=== PATIENT | female | born 1965 | race American Indian/Alaskan Native ===

== ENCOUNTER 2017-10-03 13:32 | Outpatient (CLI) | payer MEDICARE ==
[2017-10-03 14:12] LABS: Basophils # (Auto) 0.1 K/mm3 (0.0-0.1); Basophils % (Auto) 0.7 % (0.0-1.8); Eosinophils # (Auto) 0.2 K/mm3 (0.0-0.4); Eosinophils % (Auto) 1.8 % (0.0-4.3); Hematocrit 21.6 % (30.3-42.9); Hemoglobin 6.9 gm/dl (10.1-14.3); Lymphocytes # (Auto) 1.9 K/mm3 (1.2-5.4); Lymphocytes % (Auto) 21.7 % (13.4-35.0); Mean Corpuscular HGB Conc 32 % (30-34); Mean Corpuscular Hemoglobin 26 pg (28-32); Mean Corpuscular Volume 82 fl (79-97); Monocytes # (Auto) 0.7 K/mm3 (0.0-0.8); Monocytes % (Auto) 8.4 % (0.0-7.3); Platelet Count 465 K/mm3 (140-440); Red Blood Count 2.65 M/mm3 (3.65-5.03); Red Cell Distribution Width 20.5 % (13.2-15.2)
[2017-10-03 14:29] LABS: % Iron Saturation 37.58 %; Alanine Aminotransferase 8 units/L (7-56); BUN/Creatinine Ratio 8; Blood Urea Nitrogen 73 mg/dL (7-17); Calcium 7.3 mg/dL (8.4-10.2); Hemolysis Index 0; Iron 59 ug/dL (37-170); Total Iron Binding Capacity 157 mcg/dL (250-450); Transferrin 133 mg/dl (192-382)
[2017-10-03 14:31] LABS: Bilirubin,Direct < 0.2 mg/dL (0-0.2)
[2017-10-03 15:00] LABS: Creatinine,Urine 63.7 mg/dL (0.1-20.0)
[2017-10-03 15:33] LABS: Protein/Creatinine Ratio,Urine 11.08
[2017-10-03 23:25] LABS: Bacteria,Urine 1+ /HPF (Negative)
[2017-10-03 23:26] LABS: Bilirubin,Urine NEG (Negative); Blood,Urine MOD (Negative); Color,Urine Yellow (Yellow); Urobilinogen,Urine < 2.0 mg/dL (<2.0)
[2017-10-03 23:29] LABS: Protein,Urine >500 mg/dL (Negative)
== END 2017-10-03 13:33 | disposition home or self-care (01) ==
LOC: LAB 13:32
PROVIDERS: ATTEND Internal Medicine Nephrology
DX: I12.0 Hypertensive chronic kidney disease with stage 5 chronic kidney disease or end stage renal disease (principal); N18.5 Chronic kidney disease, stage 5; D63.1 Anemia in chronic kidney disease; N25.81 Secondary hyperparathyroidism of renal origin
CPT/HCPCS: 36415; 80053; 81001; 82248; 82306; 82570; 83550; 83970; 84100; 84156; 85025; 86706

== ENCOUNTER 2017-11-01 08:13 | Day surgery (SDC) | payer MEDICARE ==
[~2017-11-01 08:13] MED LIST: ANCEF/NS 1 GM/50 ML 1 GM/50 ML BAG IV NR; HEPARIN 10,000 UNITS/10 ML IV ONE; HEPARIN 10,000 UNITS/10 ML ONE; MARCAINE 0.5% 30 ML INFILTRATI ONE; MARCAINE 0.5% INFILTRATI ONE; NACL 0.9% 1000 ML 1,000 ML IV SCH; NACL 0.9% 250ML 250 ML ONE; NACL 0.9% 500 ML IRRIGATION ONE; PAPAVERINE ONE; PROTAMINE SULFATE ONE; RIFADIN ONE; SODIUM BICARBONATE ONE; XYLOCAINE 1% 20 mL ONE; ceFAZolin 1 GM in NACL 0.9% 20 ML IV NR
[2017-11-01] MEDS ORDERED: DILAUDID IV PRN (08:43)
--- NOTE | 2017-11-01 08:45 | Anesthesia Day of Surgery ---
Anesthesia Day of Surgery - Day of Surgery Patient Examined: Yes Patient H&P Reviewed: Yes Patient is NPO: Yes Beta Blockers: No Cardiac Clearance: No Pulmonary Clearance: No
--- NOTE | 2017-11-01 08:45 | Anesthesia Consultation ---
Anesthesia Consult and Med Hx Date of service: 11/01/17 - Airway Anesthetic Teeth Evaluation: Good Mental/Hyoid Distance: Adequate Mallampati Class: Class II - Pulmonary Exam CTA: Yes - Cardiac Exam Cardiac Exam: RRR - Pre-Operative Health Status ASA Pre-Surgery Classification: ASA4 - Cardiovascular System Hx Hypertension: Yes Hx Coronary Artery Disease: Yes Hx Heart Murmur: Yes (Some doctors have said she has a murmur) Hx Peripheral Vascular Disease: Yes - Central Nervous System Hx Psychiatric Problems: No - Endocrine Hx Renal Disease: Yes Hx End Stage Renal Disease: Yes - Hematic Hx Anemia: Yes - Other Systems Hx Cancer: No
[2017-11-01] MEDS ORDERED: TRANSDERM-SCOP TD NR (09:00)
[2017-11-01] MEDS ORDERED: NACL 0.9% 1000 ML 1,000 ML IV SCH (09:00)
[2017-11-01 09:17] LABS: Calcium 9.3 mg/dL (8.4-10.2)
[2017-11-01] MEDS ORDERED: DIPRIVAN 10 MG/ML IV ONE (09:57)
[2017-11-01] MEDS ORDERED: XYLOCAINE MPF 2% ONE (09:58)
[2017-11-01] MEDS ORDERED: SUBLIMAZE ONE (09:58)
[2017-11-01] MEDS ORDERED: ANCEF/STERILE WATER 2 GM/20 ML IV NR (10:00)
[2017-11-01] MEDS ORDERED: ZOFRAN ONE (10:00)
[2017-11-01] MEDS ORDERED: DECADRON ONE (10:00)
--- NOTE | 2017-11-01 12:09 | Short Stay Summary ---
Short Stay Documentation Date of service: 11/01/17 Narrative H&P: See H&P - History H&P: obtained from office - Allergies and Medications Current Medications: Allergies No Known Allergies Allergy (Unverified 10/31/17 16:46) Home Medications Medication Instructions Recorded Confirmed Last Taken Type Furosemide [Lasix] 20 mg PO DAILY 10/31/17 11/01/17 10/30/17 23:45 History Insulin Detemir [Levemir Flextouch] 0 unit SQ QHS PRN 10/31/17 10/31/17 Unknown History amLODIPine [Norvasc] 10 mg PO DAILY 10/31/17 11/01/17 11/01/17 07:30 History cloNIDine [Catapres] 0.1 mg PO TID 10/31/17 11/01/17 11/01/17 07:30 History Active Medications Sodium Chloride (Nacl 0.9% 1000 Ml) 1,000 mls @ 42 mls/hr IV DIRECT YAMILET Last Admin: 11/01/17 09:00 Dose: 42 mls/hr Scopolamine (Transderm-Scop) 1 each TD PREOP NR Stop: 11/01/17 23:59 Last Admin: 11/01/17 09:00 Dose: 1 each - Brief post op/procedure progress note Date of procedure: 11/01/17 Pre-op diagnosis: End-Stage Renal Disease Post-op diagnosis: same Procedure: Creation of Left Brachiocephalic Arteriovenous Fistula Anesthesia: IGORA Surgeon: TOMEKA WHITE Estimated blood loss: minimal Pathology: none Condition: stable - Disposition Condition at discharge: Good Disposition: DC-01 TO HOME OR SELFCARE Short Stay Discharge Plan Activity: other (no heavy lifting with left arm) Wound: open to air, keep clean and dry, other (okay to wash the wound with soap and water but do not soak in water) Follow up with: TOMEKA WHIET MD [Staff Physician] - 14 Days Prescriptions: HYDROcodone/APAP 7.5-325 [[place] 7.5/325] 1 each PO Q6HR PRN #40 tablet PRN Reason: Pain
--- NOTE | 2017-11-01 12:10 | Operative Report ---
Operative Report Operative Report: Date of procedure: 11/01/2017 Pre-operative diagnosis: End-Stage Renal Disease Post-operative diagnosis: End-Stage Renal Disease Procedure(s): Creation of Left Brachial Artery to Cephalic Vein Arteriovenous Fistula Surgeon: Lennox Sharif MD Agricultural Engineering Technologist: None Anesthesia: Gen. Endotracheal Anesthesia EBL: Minimal Counts: Correct Complications: None Condition: Stable Findings: Successful creation of left brachiocephalic arteriovenous fistula with palpable thrill and palpable radial pulse at the completion of the case. Specimen: None Indications: The patient is a 52-year-old female with a history of end-stage renal disease currently on dialysis through a permacath. She is in need of long-term dialysis access and had vein that is suitable for creation of a fistula. She was given the risks, benefits, and alternative procedures and has consented to the procedure. Description of Procedure: The patient was brought to the operating room and laid in supine position after general endotracheal anesthesia was administered the patient was prepped and draped in normal sterile fashion. After anesthetizing the skin a transverse incision was created just below the antecubital crease. Dissection was carried down to the the cephalic vein using sharp dissection. The vein was dissected out both proximally and distally and suture ligated and divided distally. I then ran a 3 Nakia proximally in the vein, to ensure patency of the vein. Then flushed the vein with heparinized saline and flow was controlled with a bulldog clamp. I then dissected out the brachial artery through this incision circumferentially both proximal and distal and controlled the artery with vessel loops. I then placed the vessel loops on tension controlling the flow through the artery and created an arteriotomy using an 11 blade and Joe scissors. I created an end to side anastomosis between the cephalic vein and brachial artery using a 6-0 Prolene in running fashion. Prior to completing the anastomosis I flushed the artery both proximally and distally and then advanced a 3 Nakia proximally to break the spasm in the artery. I then completed the anastomosis and removed all vessel loops allowing flow into the fistula which had an excellent thrill. I achieved hemostasis with a combination of direct pressure and electrocautery. Once hemostasis was achieved I anesthetized the wound with Marcaine. I then closed the wound in 2 layers and 3-0 Vicryl in a running fashion to close the deep dermal layer and 4- 0 Monocryl in a running fashion in the subcuticular layer. I dressed the wound with Surgicel. The patient tolerated the procedure well, all sponge needle and instrument counts were correct. The patient was taken to recovery in stable condition.
[2017-11-01] MEDS: DILAUDID IV PRN ×2 (12:25→12:35)
[2017-11-01] MEDS ORDERED: DILAUDID ONE (12:26)
--- NOTE | 2017-11-01 12:30 | Post Anesthesia Evaluation ---
- Post Anesthesia Evaluation Patient Participated: Yes Airway Patent: Yes Stable Respiratory Function: Yes Nausea/Vomiting: No Temp > 96.8F: Yes Pain Manageable: Yes Adequeate Hydration: Yes Anesthesia Complications: No Block Receding Appropriately: Not Applicable Patient on Ventilator: No
[2017-11-01] MEDS ORDERED: NORCO 7.5/325 PO PRN (12:44)
[2017-11-01] MEDS ORDERED: ZOFRAN IV NR (13:57)
[2017-11-01 16:40] VITALS: BP 156/78
== END 2017-11-01 15:00 | disposition home or self-care (01) ==
LOC: OR 08:13
PROVIDERS: ATTEND Surgery Vascular Surgery
DX: I12.0 Hypertensive chronic kidney disease with stage 5 chronic kidney disease or end stage renal disease (principal); N18.6 End stage renal disease; I25.10 Atherosclerotic heart disease of native coronary artery without angina pectoris; I73.9 Peripheral vascular disease, unspecified; Z79.899 Other long term (current) drug therapy
CPT/HCPCS: 36415; 36821; 80048; 81025; 82962; C1757; J0690; J1100; J1170; J1644; J2405; J2704; J3010; J7030; J7040; J7050; J2440; J2720; J3490

== ENCOUNTER 2018-01-14 08:19 | Inpatient (IN) | payer MEDICARE ==
[~2018-01-14 08:19] MED LIST changes: -ANCEF/NS 1 GM/50 ML 1 GM/50 ML BAG IV NR; +ANCEF/STERILE WATER 2 GM/20 ML 2 GM/20 ML SYRINGE IV NR; -HEPARIN 10,000 UNITS/10 ML IV ONE; -HEPARIN 10,000 UNITS/10 ML ONE; -MARCAINE 0.5% 30 ML INFILTRATI ONE; -MARCAINE 0.5% INFILTRATI ONE; -NACL 0.9% 250ML 250 ML ONE; -NACL 0.9% 500 ML IRRIGATION ONE; -PAPAVERINE ONE; -PROTAMINE SULFATE ONE; -RIFADIN ONE; -SODIUM BICARBONATE ONE; -XYLOCAINE 1% 20 mL ONE; -ceFAZolin 1 GM in NACL 0.9% 20 ML IV NR
[2018-01-14] MEDS ORDERED: DIPRIVAN 10 MG/ML IV ONE (09:28)
[2018-01-14] MEDS ORDERED: XYLOCAINE MPF 2% ONE (09:29)
[2018-01-14 09:30] LABS: Calcium 7.4 mg/dL (8.4-10.2)
[2018-01-14 09:35] LABS: Hemoglobin 10.6 gm/dl (10.1-14.3); Mean Corpuscular HGB Conc 32 % (30-34); Mean Corpuscular Hemoglobin 27 pg (28-32); Mean Corpuscular Volume 84 fl (79-97); Platelet Count 393 K/mm3 (140-440); Red Blood Count 3.91 M/mm3 (3.65-5.03); Red Cell Distribution Width 17.2 % (13.2-15.2)
[2018-01-14 09:36] LABS: Basophils % (Auto) 0.5 % (0.0-1.8); Eosinophils # (Auto) 0.1 K/mm3 (0.0-0.4); Eosinophils % (Auto) 1.6 % (0.0-4.3); Lymphocytes # (Auto) 1.8 K/mm3 (1.2-5.4); Monocytes # (Auto) 0.6 K/mm3 (0.0-0.8); Monocytes % (Auto) 9.3 % (0.0-7.3)
--- NOTE | 2018-01-14 09:43 | Anesthesia Consultation ---
Anesthesia Consult and Med Hx Date of service: 01/14/18 - Airway Anesthetic Teeth Evaluation: Good ROM Head & Neck: Adequate Mental/Hyoid Distance: Adequate - Pre-Operative Health Status ASA Pre-Surgery Classification: ASA4 Proposed Anesthetic Plan: General - Cardiovascular System Hx Hypertension: Yes Hx Coronary Artery Disease: Yes Hx Heart Murmur: Yes (Some doctors have said she has a murmur) Hx Peripheral Vascular Disease: Yes - Central Nervous System Hx Psychiatric Problems: No - Gastrointestinal Hx Gastroesophageal Reflux Disease: Yes - Endocrine Hx Renal Disease: Yes Hx End Stage Renal Disease: Yes - Hematic Hx Anemia: Yes - Other Systems Hx Cancer: No - Additional Comments Anesthesia Medical History Comments: Hyperlipidemia. NAC. Severe PONV.
--- NOTE | 2018-01-14 09:44 | Anesthesia Day of Surgery ---
Anesthesia Day of Surgery - Day of Surgery Patient Examined: Yes Patient H&P Reviewed: Yes Patient is NPO: Yes Beta Blockers: Yes
[2018-01-14] MEDS ORDERED: PEPCID IV NR (10:00)
[2018-01-14] MEDS ORDERED: PHENERGAN PO NR (10:00)
[2018-01-14] MEDS ORDERED: TRANSDERM-SCOP TD NR (10:00)
[2018-01-14] MEDS ORDERED: DIPRIVAN 10 MG/ML 1,000 MG/100 ML BOTTLE IV ONE (10:02)
[2018-01-14] MEDS ORDERED: NACL ONE (10:06)
[2018-01-14] MEDS ORDERED: HEPARIN 10,000 UNITS/10 ML ONE (10:07)
[2018-01-14] MEDS ORDERED: MARCAINE 0.25% INFILTRATI ONE (10:07)
[2018-01-14] MEDS ORDERED: RIFADIN ONE (10:07)
[2018-01-14] MEDS ORDERED: NACL 0.9% 500 ML 500 ML ONE (10:07)
[2018-01-14] MEDS ORDERED: VERSED IV ONE ×2 (10:19→10:40)
[2018-01-14] MEDS ORDERED: DECADRON ONE (10:31)
[2018-01-14] MEDS ORDERED: DILAUDID ONE (10:40)
[2018-01-14] MEDS ORDERED: MARCAINE 0.5% INFILTRATI ONE (10:43)
[2018-01-14] MEDS ORDERED: NACL 0.9% IR ONE (10:43)
[2018-01-14] MEDS ORDERED: RIFADIN IV ONE (10:43)
[2018-01-14] MEDS ORDERED: HEPARIN 10,000 UNITS/10 ML IR ONE (10:43)
[2018-01-14] MEDS ORDERED: ZOFRAN ONE (11:24)
[2018-01-14] MEDS ORDERED: QUELICIN ONE (12:04)
[2018-01-14] MEDS ORDERED: ZOFRAN IV PRN (12:19)
--- NOTE | 2018-01-14 12:46 | Short Stay Summary ---
Short Stay Documentation Date of service: 01/14/18 Narrative H&P: See H&P - History H&P: obtained from office - Allergies and Medications Current Medications: Allergies No Known Allergies Allergy (Unverified 01/13/18 12:37) Home Medications Medication Instructions Recorded Confirmed Last Taken Type Furosemide [Lasix] 20 mg PO DAILY 10/31/17 01/14/18 01/13/18 09:00 History Insulin Detemir [Levemir Flextouch] 0 unit SQ QHS PRN 10/31/17 01/13/18 Unknown History amLODIPine [Norvasc] 10 mg PO DAILY 10/31/17 01/14/18 01/14/18 07:00 History cloNIDine [Catapres] 0.2 mg PO DAILY 10/31/17 01/14/18 01/13/18 21:00 History HYDROcodone/APAP 7.5-325 [[place] 1 each PO Q6HR PRN #40 tablet 11/01/17 01/13/18 Unknown Rx 7.5/325] Carvedilol [Coreg] 3.125 mg PO DAILY 01/14/18 01/14/18 01/14/18 07:00 History Active Medications Cefazolin Sodium (Ancef/Sterile Water 2 Gm/20 Ml) 2 gm in 20 mls @ 80 mls/hr IV PREOP NR; Protocol Stop: 01/14/18 23:59 Sodium Chloride (Nacl 0.9% 1000 Ml) 1,000 mls @ 42 mls/hr IV DIRECT YAMILET Last Admin: 01/14/18 09:35 Dose: 42 mls/hr Ondansetron HCl (Zofran) 4 mg IV ONCE PRN PRN Reason: Nausea And Vomiting - Brief post op/procedure progress note Date of procedure: 01/14/18 Pre-op diagnosis: End-Stage Renal Disease Post-op diagnosis: same Procedure: Creation of Left Brachial Artery to Axillary Vein AV Graft with 6 mm Bovine Graft Anesthesia: COREEN Surgeon: TOMEKA WHITE Estimated blood loss: minimal Pathology: none Specimen disposition: to lab Condition: stable - Disposition Condition at discharge: Good Disposition: DC-01 TO HOME OR SELFCARE Short Stay Discharge Plan Activity: other (no heavy lifting with left arm) Wound: open to air, keep clean and dry, other (okay to wash the wound with soap and water but do not soak in warm) Follow up with: TOMEKA WHITE MD [Staff Physician] - 14 Days Prescriptions: HYDROcodone/APAP 7.5-325 [[place] 7.5-325 mg TAB] 1 each PO Q6HR PRN #40 tablet PRN Reason: Pain
--- NOTE | 2018-01-14 12:48 | Operative Report ---
Operative Report Operative Report: Date of procedure: 01/14/2018 Pre-operative diagnosis: End-Stage Renal Disease Post-operative diagnosis: Same Procedure(s): 1. Creation of Left Brachial Artery to Axillary Vein AV Graft with 6 mm Bovine Graft Surgeon: Lennox Sharif MD Aerial Erector: None Anesthesia: General Endotracheal Anesthesia EBL: Minimal Counts: Correct Complications: None Condition: Stable Findings: Successful Creation of Left Arm AV Graft With Palpable Thrill at the Completion of the Case. Specimen: None Indication: The patient is a 52-year-old female with a history of end-stage renal disease currently on hemodialysis through a right internal jugular permacath. She is in need of long-term access and a previous creation of a brachiocephalic arteriovenous fistula that ran for several weeks but recently thrombosed. Her basilic vein is not adequate for creation of AV fistula so she requires creation of an AV graft. She was given the risks, benefits, and alternative procedures and has consented to procedure. Description of Procedure: The patient was brought to the operating room and laid in supine position after general endotracheal anesthesia was achieved the left arm was prepped and draped in normal sterile fashion. A longitudinal incision was made on the medial aspect of the arm just proximal to the antecubital crease and carried down to the brachial artery using sharp dissection. The brachial artery was dissected out circumferentially both proximally and distally and controlled with vessel loops. A second incision was created in longitudinal fashion on the medial aspect of the arm just distal to the axillary crease and carried down to the axillary vein using sharp dissection. Axillary vein was dissected out circumferentially and controlled with a vessel loop. I then used a Stephanie- Wick tunneler to tunnel from the brachial artery incision to the axillary vein incision and then put an 6 mm bovine through the tunnel. I infused with heparinized saline to ensure that it was not twisted or kinked. I put the brachial artery vessel loops on tension controlling the flow and then created an arteriotomy using an 11 blade and Joe scissors. I beveled the graft and created an end-to-side anastomosis using 6-0 Prolene running fashion. I clamped the graft just proximal to the anastomosis and then released the vessel loops restoring flow in the brachial artery. I placed quick clot in incision to achieve hemostasis. I cut the proximal end of the graft to the appropriate length and beveled the graft in preparation for a venous anastomosis. I controlled the axillary vein a Satinsky clamp and created a venotomy using an 11 blade and Joe scissors. I created an end to side anastomosis using a 6-0 Prolene in running fashion. Prior to completing the anastomosis I flushed the graft to ensure there was no thrombus and then completed the anastamosis. I released all clamps allowing flow into the AV graft which had an excellent thrill. I packed the wound with quick clot to achieve hemostasis. I anesthetized both wounds with Marcaine and then closed both wounds in 2 layers using 3-0 Vicryl in running fashion in the deep dermal layer and 4-0 Monocryl in running fashion the subcuticular layer. I dressed both wounds with Surgicel. The patient tolerated the procedure well all sponge needle and instrument counts were correct the patient was taken to recovery in stable condition.
[2018-01-14] MEDS ORDERED: ATROVENT IH ONE ×2 (13:59→15:16)
[2018-01-14] MEDS ORDERED: ROMAZICON IV PRN (14:37)
--- NOTE | 2018-01-14 15:23 | Post Anesthesia Evaluation ---
- Post Anesthesia Evaluation Patient Participated: Yes Airway Patent: Yes Stable Respiratory Function: No (resp. insuff. secondary to lethargy; RA sats high 80s; arousable) Nausea/Vomiting: No Temp > 96.8F: No Pain Manageable: Yes Adequeate Hydration: Yes Anesthesia Complications: No Patient on Ventilator: No Other Comments: Reccomended patient be admitted for observation secondary to resp. insuff and prolonged lethargy; Flumazenil x 2 doses given at 0.2mg/dose in PACU with appropriate response however re-sedation occured.
--- NOTE | 2018-01-14 16:06 | Event Note ---
Date: 01/14/18 Patient underwent creation of left arm arteriovenous graft. After the operation the patient has remained to sedated to maintain her oxygen saturations an requires admission to the hospital for observation. She will likely require dialysis prior to discharge tomorrow.
[2018-01-14] MEDS ORDERED: NARCAN 2 MG/2 ML ONE (19:00)
--- NOTE | 2018-01-14 22:21 | History and Physical Report ---
History of Present Illness Date of examination: 01/14/18 Date of admission: 01/14/18 15:36 Chief complaint: Chief complaint: Patient excessively sedated and low oxygen saturations History of present illness: History of present illness: 52-year-old black female with history of end-stage renal disease and insulin- dependent diabetes and hypertension underwent creation of left arm arteriovenous graft--Creation of Left Brachial Artery to Axillary Vein AV Graft with 6 mm Bovine Graft . After the operation the patient has remained sedated and unable to maintain her oxygen saturations which required admission to the hospital for observation. She will likely require dialysis prior to discharge tomorrow. No fever or chills. No wheezing. No recent travel. Past History Past Medical History: diabetes, ESRD, hypertension, hyperlipidemia Past Surgical History: Other (AV graft 2 on the left upper extremity right permacath infraclavicular-subclavian) Social history: lives with family, full code. denies: smoking, alcohol abuse Family history: hypertension Medications and Allergies Allergies Allergy/AdvReac Type Severity Reaction Status Date / Time No Known Allergies Allergy Unverified 01/13/18 12:37 Home Medications Medication Instructions Recorded Confirmed Last Taken Type Furosemide [Lasix] 20 mg PO DAILY 10/31/17 01/14/18 01/13/18 09:00 History Insulin Detemir [Levemir Flextouch] 0 unit SQ QHS PRN 10/31/17 01/13/18 Unknown History amLODIPine [Norvasc] 10 mg PO DAILY 10/31/17 01/14/18 01/14/18 07:00 History cloNIDine [Catapres] 0.2 mg PO DAILY 10/31/17 01/14/18 01/13/18 21:00 History Carvedilol [Coreg] 3.125 mg PO DAILY 01/14/18 01/14/18 01/14/18 07:00 History HYDROcodone/APAP 7.5-325 [[place] 1 each PO Q6HR PRN #40 tablet 01/14/18 Unknown Rx 7.5-325 mg TAB] Active Meds: Active Medications Flumazenil (Romazicon) 0.2 mg IV ONCE PRN PRN Reason: Sedation Last Admin: 01/14/18 14:30 Dose: 0.2 mg Fluticasone Propionate (Flonase) 200 mcg NS QDAY YAMILET Cefazolin Sodium (Ancef/Sterile Water 2 Gm/20 Ml) 2 gm in 20 mls @ 80 mls/hr IV PREOP NR; Protocol Stop: 01/14/18 23:59 Ondansetron HCl (Zofran) 4 mg IV ONCE PRN PRN Reason: Nausea And Vomiting Review of Systems All systems: negative Constitutional: no weight loss, no weight gain, no fever, no chills, no sweats, no night sweats Ears, nose, mouth and throat: no dysphagia, no hoarseness, no sore throat Breasts: deferred Cardiovascular: shortness of breath, no chest pain, no orthopnea, no palpitations, no rapid/irregular heart beat, no edema, no syncope, no lightheadedness Respiratory: wheezing, no cough, no cough with sputum, no excessive sputum, no hemoptysis, no shortness of breath, no dyspnea on exertion Gastrointestinal: no abdominal pain, no nausea, no vomiting, no diarrhea, no constipation Genitourinary Female: no dysuria, no urinary frequency, no urgency Rectal: no pain Musculoskeletal: no neck stiffness, no neck pain, no shooting arm pain, no arm numbness/tingling, no low back pain, no shooting leg pain, no leg numbness/ tingling, no redness of joints Integumentary: no rash, no pruritis, no redness, no sores, no wounds, no jaundice, no boils, no blisters Neurological: no seizures, no syncope Psychiatric: no anxiety, no memory loss, no change in sleep habits, no sleep disturbances Endocrine: no cold intolerance, no heat intolerance, no polyphagia, no excessive thirst Hematologic/Lymphatic: no easy bruising, no easy bleeding Allergic/Immunologic: no urticaria, no allergic rhinitis, no wheezing Exam - Constitutional Vitals: Temp Pulse Resp BP Pulse Ox 98.1 F 84 18 182/88 100 01/14/18 20:41 01/14/18 20:41 01/14/18 20:41 01/14/18 20:41 01/14/18 20:41 General appearance: Present: no acute distress, well-nourished - EENT Eyes: Present: PERRL ENT: hearing intact, clear oral mucosa - Neck Neck: Present: supple, normal ROM - Respiratory Respiratory effort: normal Respiratory: bilateral: CTA - Cardiovascular Heart rate: 76 Rhythm: regular Heart Sounds: Present: S1 & S2. Absent: rub, click - Extremities Extremities: no ischemia, pulses symmetrical, No edema Peripheral Pulses: within normal limits - Abdominal General gastrointestinal: Present: soft, non-tender, non-distended, normal bowel sounds Female genitourinary: Present: normal - Rectal Rectal Exam: deferred - Integumentary Integumentary: Present: clear, warm, dry - Musculoskeletal Musculoskeletal: gait normal, strength equal bilaterally - Psychiatric Psychiatric: appropriate mood/affect, intact judgment & insight - Neurologic Neurologic: CNII-XII intact, moves all extremities - Allied Health Allied health notes reviewed: nursing, case management Results - Labs CBC & Chem 7: 01/14/18 09:00 01/14/18 09:00 Labs: Laboratory Last Values WBC 5.9 K/mm3 (4.5-11.0) 01/14/18 09:00 RBC 3.91 M/mm3 (3.65-5.03) 01/14/18 09:00 Hgb 10.6 gm/dl (10.1-14.3) 01/14/18 09:00 Hct 33.0 % (30.3-42.9) 01/14/18 09:00 MCV 84 fl (79-97) 01/14/18 09:00 MCH 27 pg (28-32) L 01/14/18 09:00 MCHC 32 % (30-34) 01/14/18 09:00 RDW 17.2 % (13.2-15.2) H 01/14/18 09:00 Plt Count 393 K/mm3 (140-440) 01/14/18 09:00 Lymph % (Auto) 30.0 % (13.4-35.0) 01/14/18 09:00 [place] % (Auto) 9.3 % (0.0-7.3) H 01/14/18 09:00 Eos % (Auto) 1.6 % (0.0-4.3) 01/14/18 09:00 Baso % (Auto) 0.5 % (0.0-1.8) 01/14/18 09:00 Lymph # 1.8 K/mm3 (1.2-5.4) 01/14/18 09:00 [place] # 0.6 K/mm3 (0.0-0.8) 01/14/18 09:00 Eos # 0.1 K/mm3 (0.0-0.4) 01/14/18 09:00 Baso # 0.0 K/mm3 (0.0-0.1) 01/14/18 09:00 Add Manual Diff Complete 01/14/18 09:00 Seg Neutrophils % 58.6 % (40.0-70.0) 01/14/18 09:00 Seg Neutrophils # 3.5 K/mm3 (1.8-7.7) 01/14/18 09:00 Sodium 139 mmol/L (137-145) 01/14/18 09:00 Potassium 4.0 mmol/L (3.6-5.0) 01/14/18 09:00 Chloride 92.0 mmol/L (98-107) L 01/14/18 09:00 Carbon Dioxide 33 mmol/L (22-30) H 01/14/18 09:00 Anion Gap 18 mmol/L 01/14/18 09:00 BUN 37 mg/dL (7-17) H 01/14/18 09:00 Creatinine 5.5 mg/dL (0.7-1.2) H 01/14/18 09:00 Estimated GFR 10 ml/min 01/14/18 09:00 BUN/Creatinine Ratio 7 % 01/14/18 09:00 Glucose 103 mg/dL (65-100) H 01/14/18 09:00 POC Glucose 402 (70-105) H 01/14/18 22:03 Calcium 7.4 mg/dL (8.4-10.2) L 01/14/18 09:00 Assessment and Plan Advance Directives: Yes (full code) VTE prophylaxis?: Chemical Plan of care discussed with patient/family: Yes - Patient Problems (1) Acute respiratory failure Current Visit: Yes Status: Acute Qualifiers: Respiratory failure complication: hypoxia Qualified Code(s): J96.01 - Acute respiratory failure with hypoxia Plan to address problem: Secondary to anesthesia Admitted for observation [place] (2) Insulin dependent diabetes mellitus Current Visit: Yes Status: Chronic Plan to address problem: Continue home insulin and coverage Check hemoglobin A1c (3) Hypertension Current Visit: Yes Status: Chronic Qualifiers: Hypertension type: essential hypertension Qualified Code(s): I10 - Essential (primary) hypertension Plan to address problem: Continue antihypertensives (4) End stage renal disease Current Visit: Yes Status: Chronic Plan to address problem: nephrology consulted Hemodialysis tomorrow (5) DVT prophylaxis Current Visit: Yes Status: Acute Plan to address problem: Heparin 5000 units subcutaneous every 12 hours GI prophylaxis initiated
[2018-01-14] MEDS ORDERED: INSULIN DETEMIR 15 UNIT SQ PRN (22:31)
[2018-01-14] MEDS ORDERED: LANTUS SUB-Q PRN (22:41)
[2018-01-14] MEDS ORDERED: COREG PO SCH (23:00)
[2018-01-14] MEDS: CATAPRES PO SCH (23:30)
[2018-01-14] MEDS: HumaLOG SUB-Q SCH (23:31)
[2018-01-15] MEDS ORDERED: NORVASC PO SCH (10:00)
[2018-01-15] MEDS ORDERED: LASIX PO SCH (10:00)
[2018-01-15] MEDS: CATAPRES PO SCH (10:00)
[2018-01-15] MEDS ORDERED: COREG PO SCH (10:00)
--- NOTE | 2018-01-15 11:05 | Progress Note ---
Hospitalist Physical - Constitutional Vitals: Temp Pulse Resp BP Pulse Ox 98.3 F 71 20 124/61 100 01/15/18 05:36 01/15/18 05:36 01/15/18 05:36 01/15/18 05:36 01/15/18 05:36 General appearance: Present: no acute distress, well-nourished Results - Labs CBC & Chem 7: 01/14/18 09:00 01/14/18 09:00 Labs: Laboratory Last Values WBC 5.9 K/mm3 (4.5-11.0) 01/14/18 09:00 RBC 3.91 M/mm3 (3.65-5.03) 01/14/18 09:00 Hgb 10.6 gm/dl (10.1-14.3) 01/14/18 09:00 Hct 33.0 % (30.3-42.9) 01/14/18 09:00 MCV 84 fl (79-97) 01/14/18 09:00 MCH 27 pg (28-32) L 01/14/18 09:00 MCHC 32 % (30-34) 01/14/18 09:00 RDW 17.2 % (13.2-15.2) H 01/14/18 09:00 Plt Count 393 K/mm3 (140-440) 01/14/18 09:00 Lymph % (Auto) 30.0 % (13.4-35.0) 01/14/18 09:00 [place] % (Auto) 9.3 % (0.0-7.3) H 01/14/18 09:00 Eos % (Auto) 1.6 % (0.0-4.3) 01/14/18 09:00 Baso % (Auto) 0.5 % (0.0-1.8) 01/14/18 09:00 Lymph # 1.8 K/mm3 (1.2-5.4) 01/14/18 09:00 [place] # 0.6 K/mm3 (0.0-0.8) 01/14/18 09:00 Eos # 0.1 K/mm3 (0.0-0.4) 01/14/18 09:00 Baso # 0.0 K/mm3 (0.0-0.1) 01/14/18 09:00 Add Manual Diff Complete 01/14/18 09:00 Seg Neutrophils % 58.6 % (40.0-70.0) 01/14/18 09:00 Seg Neutrophils # 3.5 K/mm3 (1.8-7.7) 01/14/18 09:00 Sodium 139 mmol/L (137-145) 01/14/18 09:00 Potassium 4.0 mmol/L (3.6-5.0) 01/14/18 09:00 Chloride 92.0 mmol/L (98-107) L 01/14/18 09:00 Carbon Dioxide 33 mmol/L (22-30) H 01/14/18 09:00 Anion Gap 18 mmol/L 01/14/18 09:00 BUN 37 mg/dL (7-17) H 01/14/18 09:00 Creatinine 5.5 mg/dL (0.7-1.2) H 01/14/18 09:00 Estimated GFR 10 ml/min 01/14/18 09:00 BUN/Creatinine Ratio 7 % 01/14/18 09:00 Glucose 103 mg/dL (65-100) H 01/14/18 09:00 POC Glucose 181 (70-105) H 01/15/18 06:49 Hemoglobin A1c 7.4 % (4-6) H 01/15/18 05:55 Calcium 7.4 mg/dL (8.4-10.2) L 01/14/18 09:00
[2018-01-15] MEDS ORDERED: NACL 0.9% 100 ML IV PRN (11:07)
[2018-01-15] MEDS: HumaLOG SUB-Q SCH ×2 (11:30→17:01)
--- NOTE | 2018-01-15 12:37 | Progress Note ---
Subjective Date of service: 01/15/18 Interval history: Pt awake and alert without specific complaint at present other than mild to moderate incisional discomfort (tolerable). Objective - Constitutional Vitals: Vital Signs - 12hr 01/15/18 01/15/18 02:12 05:36 Temperature 98.3 F 98.3 F Pulse Rate 67 71 Respiratory 20 20 Rate Blood Pressure 144/63 124/61 O2 Sat by Pulse 100 100 Oximetry - Labs CBC & Chem 7: 01/14/18 09:00 01/14/18 09:00 Labs: Abnormal lab results 01/14/18 01/15/18 01/15/18 Range/Units 22:03 05:55 06:49 POC Glucose 402 H 181 H (70-105) Hemoglobin A1c 7.4 H (4-6) % 01/15/18 Range/Units 11:53 POC Glucose 190 H (70-105) Hemoglobin A1c (4-6) %
--- NOTE | 2018-01-15 16:00 | Consultation ---
History of Present Illness - Reason for Consult Consult date: 01/15/18 end stage renal disease - History of Present Illness This is a 52year old female who came to the hospital yesterday for outpatient procedure to have left AVF placed, however patient remained sedated and oxygen levels were not being maintained within the normal parameters and so patient was admitted for overnight stay/observation. Patient has history of Hypertension , Diabetes Mellitus and ESRD on HD at [facility]. We are being consulted form management of this patient's ESRD. Past History Past Medical History: diabetes, ESRD, hypertension, hyperlipidemia Past Surgical History: Other (AV graft 2 on the left upper extremity right permacath infraclavicular-subclavian) Social history: lives with family, full code. denies: smoking, alcohol abuse Family history: hypertension Medications and Allergies Allergies Allergy/AdvReac Type Severity Reaction Status Date / Time No Known Allergies Allergy Unverified 01/13/18 12:37 Home Medications Medication Instructions Recorded Confirmed Last Taken Type Furosemide [Lasix] 80 mg PO DAILY 10/31/17 01/15/18 01/13/18 09:00 History Insulin Detemir [Levemir Flextouch] 0 unit SQ QHS PRN 10/31/17 01/13/18 Unknown History amLODIPine [Norvasc] 10 mg PO DAILY 10/31/17 01/14/18 01/14/18 07:00 History cloNIDine [Catapres] 0.2 mg PO QHS 10/31/17 01/15/18 01/13/18 21:00 History Carvedilol [Coreg] 3.125 mg PO BID 01/14/18 01/15/18 01/14/18 07:00 History HYDROcodone/APAP 7.5-325 [[place] 1 each PO Q6HR PRN #40 tablet 01/14/18 Unknown Rx 7.5-325 mg TAB] Active Meds: Active Medications Amlodipine Besylate (Norvasc) 10 mg PO DAILY [facility] Carvedilol (Coreg) 3.125 mg PO QHS [facility] Last Admin: 01/14/18 23:30 Dose: 3.125 mg Clonidine HCl (Catapres) 0.2 mg PO Q12HR [facility] Last Admin: 01/14/18 23:30 Dose: 0.2 mg Furosemide (Lasix) 20 mg PO DAILY [facility] Sodium Chloride (Nacl 0.9%) 100 mls @ 999 mls/hr IV RASHAD PRN PRN Reason: Hypotension Insulin Glargine (Lantus) 15 units SUB-Q QHS PRN PRN Reason: Hyperglycemia Last Admin: 01/14/18 23:57 Dose: 15 units Insulin Human Lispro (Humalog) 0 unit SUB-Q [facility]; Protocol Last Admin: 01/14/18 23:31 Dose: 8 unit Review of Systems Constitutional: fatigue, no weight loss, no weight gain, no fever, no chills, no sweats Ears, nose, mouth and throat: no ear discharge, no tinnitis, no decreased hearing, no nose pain, no nasal congestion, no nasal discharge Breasts: deferred Cardiovascular: no chest pain, no orthopnea, no palpitations, no rapid/ irregular heart beat, no edema, no syncope Respiratory: no cough with sputum, no excessive sputum, no hemoptysis, no shortness of breath, no dyspnea on exertion Gastrointestinal: no abdominal pain, no nausea, no vomiting, no diarrhea, no constipation, no change in bowel habits, no hematemesis Musculoskeletal: no neck stiffness, no neck pain, no shooting arm pain, no arm numbness/tingling, no low back pain, no shooting leg pain, no leg numbness/ tingling, no redness of joints, no hot joints Integumentary: no rash, no pruritis, no redness, no sores, no wounds, no jaundice Neurological: no head injury, no transient paralysis, no paralysis, no weakness , no parathesias, no numbness, no tingling, no seizures Psychiatric: no anxiety, no memory loss, no change in sleep habits, no sleep disturbances, no insomnia, no hypersomnia, no change in appetite Endocrine: no cold intolerance, no heat intolerance, no polyphagia, no excessive thirst, no polydipsia, no polyuria, no nocturia Hematologic/Lymphatic: no easy bruising, no easy bleeding, no lymphadenopathy, no lymphedema Exam - Vital Signs Vital signs: Vital Signs Temp Pulse Resp BP Pulse Ox 98.2 F 83 18 167/96 99 01/14/18 09:45 01/14/18 09:45 01/14/18 09:45 01/14/18 09:45 01/14/18 09:45 - General Appearance General appearance: well-developed, appears stated age EENT: ATNC, PERRL, mucous membranes moist, hearing intact, vision intact Neck: Present: neck supple, trachea midline Respiratory: Clear to Ascultation Heart: regular, S1S2 Gastrointestinal: Present: normoactive bowel sounds Integumentary: warm and dry Neurologic: alert and oriented x3 Musculoskeletal: Absent: deformities, joint swelling Psychiatric: mood/affect appropriate Results - Lab Results 01/14/18 09:00 01/14/18 09:00 Most recent lab results Calcium 7.4 mg/dL (8.4-10.2) L 01/14/18 09:00 Assessment and Plan End Stage Renal Disease: -Hemodialysis today for UF and clearance -Fluid restriction of 1 liter per day -Renal diet -Obtain daily weights -Monitor I/O's -Assess dialysis needs daily -OK to discharge after HD today from renal standpoint Dialysis Access: -S/P creation of LUE AVG on 01/14/18 -Perm-catheter functional and used for HD Hypertension: -Amlodipine/Coreg/Clonidine -Adjust regimen as needed Diabetes Mellitus: -On Insulin -As per primary team
[2018-01-15 17:47] VITALS: BP 123/67
--- NOTE | 2018-01-15 18:05 | Discharge Summary ---
Providers - Providers Date of Admission: 01/14/18 15:36 Date of discharge: 01/15/18 Attending physician: JERRY TRAORE 01/14/18 15:35 Consult to Physician [CONS] Routine Comment: Consulting Provider: MOSHE ARMENDARIZ Physician Instructions: Reason For Exam: Observation 01/14/18 16:02 Consult to Physician [CONS] Routine Comment: Consulting Provider: DONA VIZCARRA Physician Instructions: Reason For Exam: Dialysis 01/14/18 22:34 Consult to Physician [CONS] Routine Comment: Consulting Provider: TOMEKA WHITE Physician Instructions: Reason For Exam: AVG graft Primary care physician: OPAL AVALOS Hospitalization Condition: Good Disposition: DC-30 STILL A PATIENT Time spent for discharge: 32 min Core Measure Documentation - Palliative Care Palliative Care/ Comfort Measures: Not Applicable - Core Measures Any of the following diagnoses?: none Exam - Constitutional Vitals: Temp Pulse Resp BP Pulse Ox 98.1 F 73 18 123/67 99 01/15/18 17:00 01/15/18 17:00 01/15/18 17:00 01/15/18 17:00 01/15/18 11:42 General appearance: Present: no acute distress, well-nourished, obese - EENT Eyes: Present: PERRL, EOM intact - Neck Neck: Present: supple, normal ROM - Respiratory Respiratory effort: normal Respiratory: bilateral: diminished, negative: rales, rhonchi, wheezing - Cardiovascular Rhythm: regular Heart Sounds: Present: S1 & S2 - Extremities Extremities: no ischemia, No edema Peripheral Pulses: within normal limits - Abdominal General gastrointestinal: Present: soft, non-tender, non-distended, normal bowel sounds - Integumentary Integumentary: Present: clear, warm - Musculoskeletal Musculoskeletal: strength equal bilaterally - Psychiatric Psychiatric: appropriate mood/affect, cooperative - Neurologic Neurologic: CNII-XII intact, moves all extremities Plan Activity: no restrictions Diet: renal Additional Instructions: Follow Renal /hemodialysis per schedule Follow up with: TOMEKA WHITE MD [Staff Physician] - 14 Days DONA VIZCARRA MD [Staff Physician] - 7 Days Prescriptions: HYDROcodone/APAP 7.5-325 [[place] 7.5-325 mg TAB] 1 each PO Q6HR PRN #40 tablet PRN Reason: Pain
[2018-01-15] MEDS ORDERED: FLONASE NS SCH (23:00)
== END 2018-01-15 18:25 | disposition home or self-care (01) | DRG 264 ==
LOC: OR 08:19 → 4A 15:36
PROVIDERS: ADMIT Internal Medicine; ATTEND Internal Medicine
PROC: 03180KD Bypass Left Brachial Artery to Upper Arm Vein with Nonautologous Tissue Substitute, Open Approach (ICD-10-PCS; principal; 2018-01-14)
PROC: 03180AD Bypass Left Brachial Artery to Upper Arm Vein with Autologous Arterial Tissue, Open Approach (ICD-10-PCS; 2018-01-14)
PROC: 5A1D70Z Performance of Urinary Filtration, Intermittent, Less than 6 Hours Per Day (ICD-10-PCS; 2018-01-15)
DX: T82.49XA Other complication of vascular dialysis catheter, initial encounter (principal); J96.01 Acute respiratory failure with hypoxia; N18.6 End stage renal disease; I12.0 Hypertensive chronic kidney disease with stage 5 chronic kidney disease or end stage renal disease; I25.10 Atherosclerotic heart disease of native coronary artery without angina pectoris; I73.9 Peripheral vascular disease, unspecified; E11.22 Type 2 diabetes mellitus with diabetic chronic kidney disease; T88.59XA Other complications of anesthesia, initial encounter; K21.9 Gastro-esophageal reflux disease without esophagitis; Z82.49 Family history of ischemic heart disease and other diseases of the circulatory system; Z79.4 Long term (current) use of insulin; Z79.899 Other long term (current) drug therapy
CPT/HCPCS: 36415; 80048; 82962; 83036; 85025; 93005; 93010; C1757; C1768; J0330; J0690; J1100; J1170; J1644; J1815; J2250; J2310; J2405; J2704; J3490; J7030; J7040; Q0169